=== PATIENT | male | born 2000 | race African-American/Black ===

== ENCOUNTER 2023-01-19 05:09 | Emergency (ER) | payer SELFPAY ==
--- NOTE | 2023-01-19 05:56 | ER ---
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 Coronavirus screen: Vaccine status: Patient reports being unvaccinated. Client denies travel out of the [place] in the last 14 days. At this time, the client does not indicate any symptoms associated with coronavirus-19. Ebola Screen: Patient negative for fever greater than or equal to 101.5 degrees Fahrenheit, and additional compatible Ebola Virus Disease symptoms Patient denies exposure to infectious person. Patient denies travel to an Ebola-affected area in the 21 days before illness onset. No symptoms or risks identified at this time. Initial Sepsis Screen: Does the patient meet any 2 criteria? No. Patient's initial sepsis screen is negative. Does the patient have a suspected source of infection? No. Patient's initial sepsis screen is negative. Risk Assessment: Do you want to hurt yourself or someone else? Patient reports no desire to harm self or others. Onset of symptoms was January 19, 2023. Care prior to arrival: Medication(s) given: Fentanyl 125mcg in total IV initiated. 20 GA, in the right antecubital area. 05:12 Method Of Arrival: EMS: [facility] vc1 05:12 Acuity: YOAV 3 vc1 Triage Assessment: 05:17 General: Appears in no apparent distress. uncomfortable, Behavior is calm, cooperative, vc1 appropriate for age. Pain: Complains of pain in medial aspect of right thigh Pain does not radiate. Pain currently is 10 out of 10 on a pain scale. Quality of pain is described as sharp, Aggravated by increased activity, repositioning, weight bearing. EENT: No deficits noted. No signs and/or symptoms were reported regarding the EENT system. Neuro: Level of Consciousness is awake, alert, obeys commands, Oriented to person, place, time, situation, Appropriate for age. Cardiovascular: No deficits noted. Respiratory: Airway is patent Respiratory effort is even, unlabored, Respiratory pattern is regular, symmetrical. GI: No deficits noted. No signs and/or symptoms were reported involving the gastrointestinal system. : No deficits noted. No signs and/or symptoms were reported regarding the genitourinary system. Derm: Skin is intact, redness and inflammation to medial right thigh. Musculoskeletal: Swelling present in medial aspect of right thigh Reports pain in right quadriceps Pain is 10 out of 10 on a pain scale. 05:20 Injury Description: Bruise sustained to medial aspect of right thigh. vc1 Historical: - Allergies: 05:16 No Known Allergies; vc1 - Home Meds: 05:16 None [Active]; vc1 - PMHx: 05:16 None; vc1 - PSHx: 05:16 None; vc1 - Immunization history:: Client reports having NOT received the Covid vaccine. - Social history:: Smoking status: Patient reports the use of cigarette tobacco products, smokes one-half pack cigarettes per day, Patient reports use of chewing tobacco. - Family history:: not pertinent. Screenin:19 [facility] ED Fall Risk Assessment (Adult) History of falling in the last 3 months, vc1 including since admission No falls in past 3 months (0 pts) Confusion or Disorientation No (0 pts) Intoxicated or Sedated No (0 pts) Impaired Gait Yes (1 pt) Mobility Assist Device Used No (0 pt) Altered Elimination No (0 pt) Score/Fall Risk Level 0 - 2 = Low Risk Oriented to surroundings, Maintained a safe environment, Educated pt \T\ family on fall prevention, incl call for assistance when getting out of bed. Abuse screen: Denies threats or abuse. Nutritional screening: No deficits noted. Tuberculosis screening: No symptoms or risk factors identified. Assessment: 07:00 General: Appears in no apparent distress. comfortable, Behavior is calm, cooperative, kc6 appropriate for age. 07:54 Reassessment: Patient appears in no apparent distress at this time. No changes from kc6 previously documented assessment. Patient and/or family updated on plan of care and expected duration. Pain level reassessed. Patient is alert, oriented x 3, equal unlabored respirations, skin warm/dry/pink. Patient denies pain at this time. Patient states feeling better. Patient states symptoms have improved. Vital Signs: 05:12 BP 133 / 73; Pulse 83; Resp 18; Temp 97.9; Pulse Ox 97% on R/A; Weight 74.39 kg; Height vc1 5 ft. 9 in. ; Pain 10/10; 07:08 BP 116 / 91; Pulse 80; Resp 16 S; Pulse Ox 99% on R/A; kc6 05:12 Body Mass Index 24.22 (74.39 kg, 175.26 cm) vc1 05:12 Pain Scale: Adult vc1 ED Course: 05:11 Patient arrived in ED. vc1 05:16 Triage completed. vc1 05:19 Arm band placed on right wrist. vc1 05:20 Patient has correct armband on for positive identification. Bed in low position. Call vc1 light in reach. Client placed on continuous cardiac and pulse oximetry monitoring. NIBP monitoring applied. 05:24 Gabriel Arnold MD is Attending Physician. carlos 05:35 Susan Cardona RN is Primary Nurse. vc1 05:55 Fausto Tidwell MD is Referral Physician. carlos 06:11 Femur Right XRAY In Process Unspecified. 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 eb 07:00 Report received from Susan Kearns RN. kc6 07:54 No provider procedures requiring assistance completed. IV discontinued, intact, kc6 bleeding controlled, No redness/swelling at site. Pressure dressing applied. Administered Medications: 06:10 Drug: morphine IVP or IV 2 mg Route: IVP; Infused Over: 4 mins; Site: right antecubital;vc1 07:54 Follow up: Response: No adverse reaction; Pain is decreased; RASS: Alert and Calm (0) kc6 06:10 Drug: Ondansetron IVP 4 mg Route: IVP; Site: right antecubital; vc1 07:54 Follow up: Response: No adverse reaction kc6 06:16 Drug: Ketorolac IVP 30 mg Route: IVP; Site: right antecubital; vc1 07:53 Follow up: Response: No adverse reaction; Pain is decreased kc6 06:30 Drug: Diazepam PO 10 mg Route: PO; vc1 07:54 Follow up: Response: No adverse reaction; Pain is decreased; RASS: Alert and Calm (0) kc6 07:40 Not Given (Duplicate Order): morphine IVP or IV 2 mg IVP once over 4 mins kc6 Medication: 05:20 VIS not applicable for this client. vc1 Outcome: 05:55 Discharge ordered by . carlos 07:54 Discharged to home via wheelchair, with uber kc6 07:54 Condition: stable 07:54 Discharge instructions given to patient, Instructed on discharge instructions, follow up and referral plans. medication usage, Demonstrated understanding of instructions, follow-up care, medications, Prescriptions given X 2. 07:55 Patient left the ED. kc6 Signatures: Dispatcher [employer] EDGabriel Fitzgerald MD MD cha Botello, Elizabeth eb Calcote, Vanessa RN RN vc1 Livia Crane RN RN kc6
--- NOTE | 2023-01-19 05:56 | EDPHYS ---
Physician Documentation [facility] Name: José Miguel Vargas Age: 22 yrs Sex: Male : 2000 Arrival Date: 01/19/2023 Time: 05:09 Bed 6 Private MD: ED Physician Gabriel Arnold HPI: 01/19 05:50 This 22 yrs old Male presents to ER via EMS with complaints of Leg Injury. carlos 05:50 The patient presents with decreased range of motion, pain, that is acute. The carlos complaints affect the right quadriceps. Context: The problem was sustained outdoors. Onset: The symptoms/episode began/occurred just prior to arrival. Modifying factors: The symptoms are alleviated by nothing. elevating leg, the symptoms are aggravated by movement. Associated signs and symptoms: The patient has no apparent associated signs or symptoms. Severity of symptoms: At their worst the symptoms were moderate, in the emergency department the symptoms are unchanged. The patient has not experienced similar symptoms in the past. Historical: - Allergies: 05:16 No Known Allergies; vc1 - Home Meds: 05:16 None [Active]; vc1 - PMHx: 05:16 None; vc1 - PSHx: 05:16 None; vc1 - Immunization history:: Client reports having NOT received the Covid vaccine. - Social history:: Smoking status: Patient reports the use of cigarette tobacco products, smokes one-half pack cigarettes per day, Patient reports use of chewing tobacco. - Family history:: not pertinent. ROS: 05:50 Constitutional: Negative for fever, chills, and weight loss, Eyes: Negative for injury, carlos pain, redness, and discharge, ENT: Negative for injury, pain, and discharge, Neck: Negative for injury, pain, and swelling, Cardiovascular: Negative for chest pain, palpitations, and edema, Respiratory: Negative for shortness of breath, cough, wheezing, and pleuritic chest pain, Abdomen/GI: Negative for abdominal pain, nausea, vomiting, diarrhea, and constipation, Back: Negative for injury and pain, : Negative for injury, bleeding, discharge, and swelling, Skin: Negative for injury, rash, and discoloration, Neuro: Negative for headache, weakness, numbness, tingling, and seizure, Psych: Negative for depression, anxiety, suicide ideation, homicidal ideation, and hallucinations, Allergy/Immunology: Negative for hives, rash, and allergies, Endocrine: Negative for neck swelling, polydipsia, polyuria, polyphagia, and marked weight changes, Hematologic/Lymphatic: Negative for swollen nodes, abnormal bleeding, and unusual bruising. 05:50 MS/extremity: Positive for decreased range of motion, pain, swelling, tenderness, of the medial aspect of right thigh and right quadriceps. Exam: 05:50 Constitutional: This is a well developed, well nourished patient who is awake, alert, carlos and in no acute distress. Head/Face: Normocephalic, atraumatic. Eyes: Pupils equal round and reactive to light, extra-ocular motions intact. Lids and lashes normal. Conjunctiva and sclera are non-icteric and not injected. Cornea within normal limits. Periorbital areas with no swelling, redness, or edema. ENT: Nares patent. No nasal discharge, no septal abnormalities noted. Tympanic membranes are normal and external auditory canals are clear. Oropharynx with no redness, swelling, or masses, exudates, or evidence of obstruction, uvula midline. Mucous membranes moist. Neck: Trachea midline, no thyromegaly or masses palpated, and no cervical lymphadenopathy. Supple, full range of motion without nuchal rigidity, or vertebral point tenderness. No Meningismus. Chest/axilla: Normal chest wall appearance and motion. Nontender with no deformity. No lesions are appreciated. Cardiovascular: Regular rate and rhythm with a normal S1 and S2. No gallops, murmurs, or rubs. Normal PMI, no JVD. No pulse deficits. Respiratory: Lungs have equal breath sounds bilaterally, clear to auscultation and percussion. No rales, rhonchi or wheezes noted. No increased work of breathing, no retractions or nasal flaring. Abdomen/GI: Soft, non-tender, with normal bowel sounds. No distension or tympany. No guarding or rebound. No evidence of tenderness throughout. Back: No spinal tenderness. No costovertebral tenderness. Full range of motion. Male : Normal genitalia with no discharge or lesions. Skin: Warm, dry with normal turgor. Normal color with no rashes, no lesions, and no evidence of cellulitis. Neuro: Awake and alert, GCS 15, oriented to person, place, time, and situation. Cranial nerves II-XII grossly intact. Motor strength 5/5 in all extremities. Sensory grossly intact. Cerebellar exam normal. Normal gait. Psych: Awake, alert, with orientation to person, place and time. Behavior, mood, and affect are within normal limits. 05:50 Musculoskeletal/extremity: Extremities: noted in the right quadriceps: decreased ROM, pain, swelling, tenderness, ROM: intact in all extremities, limited active range of motion due to pain, limited passive range of motion due to pain, in the right quadriceps, Circulation is intact in all extremities. Sensation intact. Compartment Syndrome exam of affected extremity: is normal. Joints: All joints appear normal with full range of motion. Weight bearing: able to fully bear weight, without difficulty, Tendon exam: specific tendon testing normal through active and passive range of motion DVT Exam: negative Homans' sign noted on exam, no appreciated bluish discoloration, no erythema, no increased warmth, pain, swelling, tenderness, Calves: are non-tender, have equal circumference. Vital Signs: 05:12 BP 133 / 73; Pulse 83; Resp 18; Temp 97.9; Pulse Ox 97% on R/A; Weight 74.39 kg; Height vc1 5 ft. 9 in. ; Pain 10/10; 07:08 BP 116 / 91; Pulse 80; Resp 16 S; Pulse Ox 99% on R/A; kc6 05:12 Body Mass Index 24.22 (74.39 kg, 175.26 cm) vc1 05:12 Pain Scale: Adult vc1 MDM: 05:24 Patient medically screened. [facility] 05:53 Differential diagnosis: closed fracture, contusion, abrasion. Data reviewed: [facility] signs, nurses notes, EMS record, radiologic studies, plain films. Consideration of Admission/Observation Escalation of care including admission/observation considered. I considered the following discharge prescriptions or medication management in the emergency department Medications were administered in the Emergency Department. See MAR. Test considered but Not performed: Labs: NO LABS. Historians other than the Patient: EMS: EMS INFORMATIVE. Care significantly affected by the following chronic conditions: NONE. 01/19 05:49 Order name: Femur Right XRAY [facility] 01/19 05:49 Order name: Ice pack; Complete Time: 06:16 carlos 01/19 05:49 Order name: Knee Immobilizer; Complete Time: 07:03 [facility] 01/19 05:49 Order name: Crutches; Complete Time: 07:03 carlos Administered Medications: 06:10 Drug: morphine IVP or IV 2 mg Route: IVP; Infused Over: 4 mins; Site: right antecubital;vc1 07:54 Follow up: Response: No adverse reaction; Pain is decreased; RASS: Alert and Calm (0) kc6 06:10 Drug: Ondansetron IVP 4 mg Route: IVP; Site: right antecubital; vc1 07:54 Follow up: Response: No adverse reaction kc6 06:16 Drug: Ketorolac IVP 30 mg Route: IVP; Site: right antecubital; vc1 07:53 Follow up: Response: No adverse reaction; Pain is decreased kc6 06:30 Drug: Diazepam PO 10 mg Route: PO; vc1 07:54 Follow up: Response: No adverse reaction; Pain is decreased; RASS: Alert and Calm (0) kc6 07:40 Not Given (Duplicate Order): morphine IVP or IV 2 mg IVP once over 4 mins kc6 Disposition Summary: 01/19/23 05:55 Discharge Ordered Location: Home carlos Problem: new carlos Symptoms: have improved carlos Condition: Stable carlos Diagnosis - Contusion of right thigh - HEMATOMA carlos Followup: carlos - With: Private Physician - When: 2 - 3 days - Reason: Recheck today's complaints, Continuance of care, Re-evaluation by your physician Followup: carlos - With: Fausto Tidwell MD - When: 1 - 2 days - Reason: Recheck today's complaints, Re-evaluation by your physician Discharge Instructions: - Discharge Summary Sheet carlos - Hematoma carlos - Hematoma, [id number] carlos - Quadriceps Contusion carlos - Quadriceps Contusion, [id number] carlos Forms: - Medication Reconciliation Form carlos - Thank You Letter carlos - Antibiotic Education carlos - Prescription Opioid Use carlos Prescriptions: - acetaminophen-codeine 300-30 mg Oral tablet - take 2 tablet by ORAL route every 6 hours; 20 tablet; Refills: 0, Product carlos Selection Permitted - Diclofenac Sodium 75 mg Oral tablet,delayed release (DR/EC) - take 1 tablet by ORAL route 2 times per day; 20 tablet; Refills: 0, Product carlos Selection Permitted Signatures: Dispatcher [employer] Gabriel Malik MD MD cha Calcote, Vanessa RN RN vc1 Crane, Livia RN kc6
[2023-01-19] MEDS ORDERED: DIAZEPAM 5 MG TABLET ONE (06:07)
[2023-01-19] MEDS ORDERED: KETOROLAC 30 MG/ML INJ ONE (06:07)
[2023-01-19] MEDS ORDERED: MORPHINE 2 MG/ML SYR ONE (06:07)
[2023-01-19] MEDS ORDERED: ONDANSETRON 4 MG/2 ML VIAL ONE (06:08)
[2023-01-19 08:02] VITALS: TEMP 97.9
[2023-01-19 08:04] VITALS: BP 116/91; O2SAT 99
--- NOTE | 2023-01-19 21:46 | RAD REPORT ---
EXAM DESCRIPTION: RAD - Femur Right - 01/19/2023 6:09 am CLINICAL HISTORY: PAIN Femur Right COMPARISON: None. FINDINGS: 2 views of the right femur. No acute fracture or dislocation. Normal osseous mineralizatio n. IMPRESSION: 1. No acute fracture or dislocation. Electronically signed by: Costa Oliveros 01/19/2023 6:18 AM CDT Due to temporary technical issues with the PACS/Fluency reporting system, reports are being signed by the in house radiologists without review as a courtesy to insure prompt reporting. The interpreting radiologist is fully responsible for the content of the report.
== END 2023-01-19 07:55 | disposition home or self-care (01) ==
LOC: ER 05:09
DX: S70.11XA Contusion of right thigh, initial encounter (principal)
CPT/HCPCS: 96374; 96375; 99284; J2270; J2405